=== PATIENT | female | born 2000 | race Caucasian/White ===

== ENCOUNTER 2021-06-14 11:33 | Inpatient (IN) | payer MEDICAID ==
[~2021-06-14 11:33] MED LIST: Bupivacaine 0.25% HCL 30 ML VIAL ONE; Bupivacaine PF 0.5% 30 ML VIAL ONE; Lidocaine 2% MPF 10 ML AMP (For Epidural Use) ONE
[2021-06-14] MEDS ORDERED: Lidocaine 1% (PF) 30 ML VIAL SC PRN (12:52)
[2021-06-14] MEDS ORDERED: hydrALAZINE 20 MG/ML VIAL SLOW IVP PRN ×2 (12:52→23:29)
[2021-06-14] MEDS ORDERED: Methylergonovine 0.2 MG/ML VIAL IM PRN (12:52)
[2021-06-14] MEDS ORDERED: Misoprostol 200 MCG TAB PR PRN ×2 (12:52→23:29)
[2021-06-14] MEDS ORDERED: Ibuprofen 800 MG TAB PO PRN (12:52)
[2021-06-14] MEDS ORDERED: Ondansetron PF 4 MG/2 ML Vial IVP PRN ×3 (12:52→23:29)
[2021-06-14] MEDS ORDERED: Promethazine HCl 25 MG/ML VIAL IM PRN ×3 (12:52→23:29)
[2021-06-14] MEDS ORDERED: Carboprost 250 MCG/ML AMP IM PRN (12:52)
[2021-06-14] MEDS ORDERED: NS w/ Oxytocin 30 units 500 ML IV SCH ×2 (13:00→23:29)
[2021-06-14] MEDS: Lactated Ringer's 1,000 ML IV SCH ×2 (13:15→14:25)
[2021-06-14 13:51] LABS: Hemoglobin 13.8 g/dL (12.0-15.5); Mean Corpuscular HGB CONC 34.1 g/dL (32.0-36.0); Mean Corpuscular Hemoglobin 32.3 pg (27.0-33.0); Mean Corpuscular Volume 94.8 fl (81.6-98.3); Mean Platelet Volume 11.4 fl (7.4-10.4); Platelet Count 155 10x3/uL (150-450); RBC Distribution Width 12.8 % (11.5-14.5); Red Blood Cell (RBC) Count 4.27 10x6/uL (3.90-5.03); White Blood Cell (WBC) Count 25.6 10x3/uL (3.5-10.5)
[2021-06-14 14:18] VITALS: BMI 31.3
[2021-06-14 14:21] LABS: Syphilis Antibody Nonreactive (Nonreactive)
[2021-06-14 14:22] LABS: Hep B Surf Ag Non-Reactive S/CO (NonReactive)
[2021-06-14 14:26] LABS: HBSAg Index 0.23 S/CO (0-0.99)
[2021-06-14] MEDS ORDERED: Dextrose 5%-Lactated Ringers 1,000 ML IV SCH (15:30)
[2021-06-14] MEDS ORDERED: Fentanyl 2 mcg/Bup 0.1% Cadd 100 ML ONE (15:55)
[2021-06-14] MEDS ORDERED: Azithromycin 500 MG VIAL ONE (17:49)
[2021-06-14] MEDS ORDERED: Famotidine/PF 20 mg/2ml Vial ONE ×2 (17:56→18:05)
[2021-06-14] MEDS ORDERED: Morphine PF 10 MG/10 ML VIAL ONE (18:04)
[2021-06-14] MEDS ORDERED: Methylergonovine 0.2 MG/ML VIAL ONE (18:05)
[2021-06-14] MEDS ORDERED: Oxytocin 10 UNITS/ML VIAL ONE (18:05)
[2021-06-14] MEDS ORDERED: Carboprost 250 MCG/ML AMP ONE (18:05)
[2021-06-14] MEDS ORDERED: Ondansetron PF 4 MG/2 ML Vial ONE (19:08)
[2021-06-14] MEDS ORDERED: Dexamethasone 4 mg/ml Vial ONE (19:08)
[2021-06-14] MEDS ORDERED: diphenhydrAMINE 50 MG/ML VIAL IVP PRN (20:08)
[2021-06-14] MEDS ORDERED: L&D-Morphine 4 MG/ML VIAL SLOW IVP PRN (20:08)
[2021-06-14] MEDS ORDERED: Naloxone HCl 0.4 mg/ml Vial IVP PRN ×2 (20:08)
[2021-06-14] MEDS ORDERED: Meperidine HCl/PF 25 MG/ML VIAL SLOW IVP PRN (20:08)
[2021-06-14] MEDS ORDERED: Fentanyl 100 MCG/2 ML VIAL SLOW IVP PRN (20:08)
[2021-06-14] MEDS ORDERED: Ondansetron HCl/PF 4 MG/2 ML Vial IVP PRN (20:08)
[2021-06-14] MEDS ORDERED: Hydrocerin (Eucerin) Cream 120 gm Jar TOP PRN (20:08)
[2021-06-14] MEDS ORDERED: Naloxone HCl 0.4 mg/ml Vial IV PRN (20:08)
[2021-06-14] MEDS ORDERED: Promethazine HCl 25 MG SUPP PR PRN (20:08)
[2021-06-14] MEDS ORDERED: Ketorolac Tromethamine 30 MG/ML VIAL IVP PRN (20:08)
[2021-06-14] MEDS ORDERED: Communication Order-Pharmacy FS SCH (20:15)
[2021-06-14] MEDS ORDERED: Ketorolac Tromethamine 30 MG/ML VIAL IVP SCH (20:15)
[2021-06-14] MEDS ORDERED: Fentanyl 100 MCG/2 ML VIAL ONE (21:41)
[2021-06-14] MEDS ORDERED: diphenhydrAMINE 25 MG CAP PO PRN (23:29)
[2021-06-14] MEDS ORDERED: Simethicone Chewable 80 MG TAB PO PRN (23:29)
[2021-06-14] MEDS ORDERED: Measles/Mumps/Rubella 10 MCG/0.5 ML VIAL SC ONE (23:29)
[2021-06-14] MEDS ORDERED: Varicella virus, LIVE 0.5 ML VIAL SC ONE (23:29)
[2021-06-14] MEDS ORDERED: Acetaminophen 325 MG TAB PO PRN (23:29)
[2021-06-14] MEDS ORDERED: Lanolin Ointment 7 GM TUBE TOP PRN (23:29)
[2021-06-14] MEDS ORDERED: Bisacodyl 10 MG SUPP PR PRN (23:29)
[2021-06-14] MEDS ORDERED: Boostrix 0.5 ML (Tdap) VIAL IM ONE (23:29)
[2021-06-15 07:44] LABS: Hemoglobin 9.2 g/dL (12.0-15.5); Mean Corpuscular HGB CONC 34.7 g/dL (32.0-36.0); Mean Corpuscular Hemoglobin 32.7 pg (27.0-33.0); Mean Corpuscular Volume 94.3 fl (81.6-98.3); Mean Platelet Volume 11.9 fl (7.4-10.4); Platelet Count 139 10x3/uL (150-450); RBC Distribution Width 12.7 % (11.5-14.5); Red Blood Cell (RBC) Count 2.81 10x6/uL (3.90-5.03); White Blood Cell (WBC) Count 21.2 10x3/uL (3.5-10.5)
[2021-06-15] MEDS: Docusate Calcium (SURFAK) 240 MG CAP PO SCH ×3 (08:11→20:22)
[2021-06-15] MEDS: Prenatal Vitamin 1 TAB PO SCH (08:11)
[2021-06-15] MEDS ORDERED: HYDROcodone/Acetaminophen 5/325 mg Tablet PO PRN (08:15)
[2021-06-15] MEDS ORDERED: Zolpidem Tartrate 5 MG TAB PO PRN (08:15)
[2021-06-15] MEDS: HYDROcodone/Acetaminophen 5/325 mg Tablet PO PRN ×2 (10:18→11:38)
[2021-06-15] MEDS: Ferrous Sulfate 325 MG TAB PO SCH (16:51)
[2021-06-15] MEDS: Ibuprofen 800 MG TAB PO SCH (20:22)
[2021-06-16] MEDS: Ibuprofen 800 MG TAB PO SCH ×3 (03:06→21:19)
[2021-06-16] MEDS: Prenatal Vitamin 1 TAB PO SCH (08:34)
[2021-06-16] MEDS: Ferrous Sulfate 325 MG TAB PO SCH ×2 (08:34→16:51)
[2021-06-16] MEDS: Docusate Calcium (SURFAK) 240 MG CAP PO SCH ×2 (08:34→21:19)
[2021-06-17] MEDS: Ibuprofen 800 MG TAB PO SCH (06:02)
[2021-06-17 07:52] VITALS: BP 107/54; TEMP 98.7
[2021-06-17] MEDS: Ferrous Sulfate 325 MG TAB PO SCH (10:25)
== END 2021-06-17 13:10 | disposition home or self-care (01) | DRG 788 ==
LOC: CSHLD/OP 11:33 → CSHLD 18:28 → UNDOADMIN 18:58 → CSHLD 18:58 → CSHPP 20:53 → CSHLD 20:53 → CSHPP 22:48 → CSHLD 22:48
PROVIDERS: ADMIT Obstetrics & Gynecology; ATTEND Obstetrics & Gynecology
PROC: 10907ZC Drainage of Amniotic Fluid, Therapeutic from Products of Conception, Via Natural or Artificial Opening (ICD-10-PCS; principal; 2021-06-14)
PROC: 10D00Z1 Extraction of Products of Conception, Low, Open Approach (ICD-10-PCS; 2021-06-14)
PROC: 30233S1 Transfusion of Nonautologous Globulin into Peripheral Vein, Percutaneous Approach (ICD-10-PCS; 2021-06-15)
DX: O76 Abnormality in fetal heart rate and rhythm complicating labor and delivery (principal); O99.334 Smoking (tobacco) complicating childbirth; O77.0 Labor and delivery complicated by meconium in amniotic fluid; Z3A.39 39 weeks gestation of pregnancy; Z37.0 Single live birth; F17.210 Nicotine dependence, cigarettes, uncomplicated
CPT/HCPCS: 36415; 51702; 85027; 85461; 86780; 86850; 86870; 86900; 86901; 87070; 87076; 87205; 87340; 90384; 96372; 99285; J0456; J0690; J1100; J1885; J2210; J2274; J2405; J2590; J3010; J3490; S0020; S0028

== ENCOUNTER 2021-06-30 15:37 | Emergency (ER) | payer MEDICAID, OTHER ==
[2021-06-30 16:26] LABS: #Basophils 0.1 10x3/uL (0.0-0.2); #Eosinphils 0.1 10x3/uL (0.0-0.5); #Monocytes 1.2 10x3/uL (0.0-1.1); %Basophils 0.4 % (0.0-2.0); %Eosinophils 0.7 % (0.0-6.0); %Lymphocytes 13.1 % (18.0-47.0); %Monocytes 7.5 % (0.0-10.0); %Neutrophils 77.8 % (40.0-75.0); Hemoglobin 10.4 g/dL (12.0-15.5); Mean Corpuscular HGB CONC 32.4 g/dL (32.0-36.0); Mean Corpuscular Volume 95.5 fl (81.6-98.3); Mean Platelet Volume 9.4 fl (7.4-10.4); Platelet Count 345 10x3/uL (150-450); RBC Distribution Width 12.7 % (11.5-14.5); Red Blood Cell (RBC) Count 3.36 10x6/uL (3.90-5.03); White Blood Cell (WBC) Count 15.4 10x3/uL (3.5-10.5)
[2021-06-30 16:39] LABS: ALT (SGPT) 13 U/L (8-55); AST (SGOT) 11 U/L (5-34); Albumin 3.5 g/dL (3.5-5.0); Alkaline Phosphatase 91 U/L (40-110); Anion Gap 11 mmol/L (10-20); BUN (Urea Nitrogen) 10 mg/dL (7.0-18.7); Bilirubin, Total 0.2 mg/dL (0.2-1.2); Calc. Creatinine Clearance 0 mL/min (70-130); Calcium 9.1 mg/dL (7.8-10.44); Carbon Dioxide 25 mmol/L (22-29); Chloride 108 mmol/L (98-107); Globulin 3.5 g/dL (2.4-3.5); Glucose 98 mg/dL (70-105); Potassium 4.3 mmol/L (3.5-5.1); Sodium 140 mmol/L (136-145)
== END 2021-06-30 17:37 | disposition left against medical advice (07) ==
LOC: CSHERS 15:37
DX: Z53.21 Procedure and treatment not carried out due to patient leaving prior to being seen by health care provider (principal)
CPT/HCPCS: 80053; 83605; 85025

== ENCOUNTER 2022-01-04 17:19 | Emergency (ER) | payer OTHER | END 2022-01-04 19:10 | disposition home or self-care (01) | LOC: CSHERS 17:19 | DX: O20.8 Other hemorrhage in early pregnancy (principal); O99.331 Smoking (tobacco) complicating pregnancy, first trimester; F17.200 Nicotine dependence, unspecified, uncomplicated; Z3A.01 Less than 8 weeks gestation of pregnancy | CPT/HCPCS: 76856 ==

== ENCOUNTER 2022-04-08 20:05 | Emergency (ER) | payer OTHER | END 2022-04-08 21:45 | disposition home or self-care (01) | LOC: CSHERS 20:05 | DX: O98.512 Other viral diseases complicating pregnancy, second trimester (principal); U07.1 COVID-19; O99.332 Smoking (tobacco) complicating pregnancy, second trimester; F17.200 Nicotine dependence, unspecified, uncomplicated | CPT/HCPCS: 87804; 99283; U0003; U0005 ==

== ENCOUNTER 2022-05-25 14:32 | Outpatient (CLI) | payer OTHER | END 2022-05-25 14:33 | disposition home or self-care (01) | LOC: CSHULT 14:32 | PROVIDERS: ATTEND Nurse Practitioner Women's Health | DX: O44.42 Low lying placenta NOS or without hemorrhage, second trimester (principal); Z3A.26 26 weeks gestation of pregnancy | CPT/HCPCS: 76805 ==

== ENCOUNTER 2022-08-26 05:24 | Inpatient (IN) | payer OTHER ==
[2022-08-26] MEDS ORDERED: Promethazine HCl 25 MG/ML VIAL IM PRN ×3 (06:03→11:03)
[2022-08-26] MEDS ORDERED: Famotidine/PF 20 mg/2ml Vial SLOW IVP PRN (06:03)
[2022-08-26] MEDS ORDERED: Ondansetron PF 4 MG/2 ML Vial IVP PRN ×3 (06:03→11:03)
[2022-08-26] MEDS ORDERED: Bicitra 30 ML UDCUP PO PRN (06:03)
[2022-08-26] MEDS ORDERED: Lactated Ringer's 1,000 ML IV SCH (06:03)
[2022-08-26] MEDS ORDERED: hydrALAZINE 20 MG/ML VIAL SLOW IVP PRN ×2 (06:03→11:03)
[2022-08-26 06:14] LABS: Hemoglobin 10.3 g/dL (12.0-15.5); Mean Corpuscular HGB CONC 33.9 g/dL (32.0-36.0); Mean Corpuscular Hemoglobin 28.4 pg (27.0-33.0); Mean Corpuscular Volume 83.7 fl (81.6-98.3); Mean Platelet Volume 11.8 fl (7.4-10.4); Platelet Count 165 10x3/uL (150-450); RBC Distribution Width 14.4 % (11.5-14.5); Red Blood Cell (RBC) Count 3.63 10x6/uL (3.90-5.03); White Blood Cell (WBC) Count 8.7 10x3/uL (3.5-10.5)
[2022-08-26 06:33] VITALS: BMI 31.6
[2022-08-26 06:57] LABS: HBSAg Index 0.18 S/CO (0-0.99); Hep B Surf Ag Non-Reactive S/CO (NonReactive)
[2022-08-26 06:59] LABS: Syphilis Antibody Nonreactive (Nonreactive)
[2022-08-26] MEDS ORDERED: Gentamicin Sulfate 80 MG in Premix Bag 1 BAG IVPB SCH (07:15)
[2022-08-26] MEDS ORDERED: Clindamycin/D5W 900 MG in Premix Bag 1 BAG IVPB SCH (07:15)
[2022-08-26] MEDS ORDERED: Morphine PF 10 MG/10 ML VIAL ONE (07:23)
[2022-08-26] MEDS ORDERED: Ketorolac Tromethamine 30 MG/ML VIAL ONE (07:24)
[2022-08-26] MEDS ORDERED: Dexamethasone 4 mg/ml Vial ONE ×2 (07:24→08:10)
[2022-08-26] MEDS ORDERED: Oxytocin 10 UNITS/ML VIAL ONE (07:24)
[2022-08-26] MEDS ORDERED: Ondansetron PF 4 MG/2 ML Vial ONE (07:24)
[2022-08-26] MEDS ORDERED: Phenylephrine 40 MG/NS 250 ML 250 ML ONE (07:24)
[2022-08-26] MEDS ORDERED: diphenhydrAMINE 50 MG/ML VIAL ONE (08:04)
[2022-08-26] MEDS ORDERED: Promethazine HCl 25 MG SUPP PR PRN (08:41)
[2022-08-26] MEDS ORDERED: Naloxone HCl 0.4 mg/ml Vial IV PRN (08:41)
[2022-08-26] MEDS ORDERED: Fentanyl 100 MCG/2 ML VIAL SLOW IVP PRN (08:41)
[2022-08-26] MEDS ORDERED: Ondansetron HCl/PF 4 MG/2 ML Vial IVP PRN (08:41)
[2022-08-26] MEDS ORDERED: diphenhydrAMINE 50 MG/ML VIAL IVP PRN (08:41)
[2022-08-26] MEDS ORDERED: Meperidine HCl/PF 25 MG/ML VIAL SLOW IVP PRN (08:41)
[2022-08-26] MEDS ORDERED: Moisturizing Cream (Eucerin) 113 GM JAR TOP PRN (08:41)
[2022-08-26] MEDS ORDERED: Ketorolac Tromethamine 30 MG/ML VIAL IVP PRN (08:41)
[2022-08-26] MEDS ORDERED: Naloxone HCl 0.4 mg/ml Vial IVP PRN ×2 (08:41)
[2022-08-26] MEDS ORDERED: Ketorolac Tromethamine 30 MG/ML VIAL IVP SCH (08:45)
[2022-08-26] MEDS ORDERED: Communication Order-Pharmacy FS SCH (08:45)
[2022-08-26] MEDS ORDERED: Boostrix 0.5 ML (Tdap) VIAL (>/=7 yrs of age) IM ONE (11:03)
[2022-08-26] MEDS ORDERED: Bisacodyl 10 MG SUPP PR PRN (11:03)
[2022-08-26] MEDS ORDERED: diphenhydrAMINE 25 MG CAP PO PRN (11:03)
[2022-08-26] MEDS ORDERED: Meperidine HCl/PF 25 MG/ML VIAL IM PRN (11:03)
[2022-08-26] MEDS ORDERED: Lanolin Ointment 7 GM TUBE TOP PRN (11:03)
[2022-08-26] MEDS ORDERED: Simethicone Chewable 80 MG TAB PO PRN (11:03)
[2022-08-26] MEDS: Ketorolac Tromethamine 30 MG/ML VIAL IVP SCH ×2 (14:00→20:09)
[2022-08-26] MEDS: Docusate 100 MG CAP PO SCH (20:09)
[2022-08-27] MEDS: Ketorolac Tromethamine 30 MG/ML VIAL IVP SCH ×2 (02:23→08:18)
[2022-08-27 04:14] LABS: Hemoglobin 9.2 g/dL (12.0-15.5); Mean Corpuscular HGB CONC 33.2 g/dL (32.0-36.0); Mean Corpuscular Hemoglobin 28.2 pg (27.0-33.0); Platelet Count 144 10x3/uL (150-450); RBC Distribution Width 13.9 % (11.5-14.5); Red Blood Cell (RBC) Count 3.26 10x6/uL (3.90-5.03); White Blood Cell (WBC) Count 11.7 10x3/uL (3.5-10.5)
[2022-08-27] MEDS: Ferrous Sulfate 325 MG TAB PO SCH ×3 (07:53→21:33)
[2022-08-27] MEDS: Prenatal Vitamin 1 TAB PO SCH (08:18)
[2022-08-27] MEDS: Docusate 100 MG CAP PO SCH ×2 (08:18→21:33)
[2022-08-27] MEDS: HYDROcodone/Acetaminophen 5/325 mg Tablet PO PRN ×2 (11:45→19:00)
[2022-08-27] MEDS: Ibuprofen 800 MG TAB PO SCH ×2 (13:44→21:33)
[2022-08-28] MEDS: HYDROcodone/Acetaminophen 5/325 mg Tablet PO PRN ×4 (00:28→21:08)
[2022-08-28] MEDS: Ibuprofen 800 MG TAB PO SCH ×3 (06:33→21:09)
[2022-08-28] MEDS: Docusate 100 MG CAP PO SCH ×2 (08:44→21:08)
[2022-08-28] MEDS: Prenatal Vitamin 1 TAB PO SCH (08:44)
[2022-08-28] MEDS: Ferrous Sulfate 325 MG TAB PO SCH ×2 (08:44→21:08)
[2022-08-29] MEDS: Ibuprofen 800 MG TAB PO SCH ×2 (06:26→14:04)
[2022-08-29 08:24] VITALS: BP 126/71; TEMP 98.6
[2022-08-29] MEDS: Prenatal Vitamin 1 TAB PO SCH (09:04)
[2022-08-29] MEDS: Docusate 100 MG CAP PO SCH (09:04)
[2022-08-29] MEDS: Ferrous Sulfate 325 MG TAB PO SCH (09:05)
[2022-08-29] MEDS: HYDROcodone/Acetaminophen 5/325 mg Tablet PO PRN (09:05)
== END 2022-08-29 16:00 | disposition home or self-care (01) | DRG 788 ==
LOC: CSHLD 05:24 → CSHPED 10:40
PROVIDERS: ADMIT Family Medicine; ATTEND Family Medicine
PROC: 10D00Z1 Extraction of Products of Conception, Low, Open Approach (ICD-10-PCS; principal; 2022-08-26)
PROC: 3E0334Z Introduction of Serum, Toxoid and Vaccine into Peripheral Vein, Percutaneous Approach (ICD-10-PCS; 2022-08-26)
DX: O34.211 Maternal care for low transverse scar from previous cesarean delivery (principal); O26.893 Other specified pregnancy related conditions, third trimester; Z67.41 Type O blood, Rh negative; Z3A.39 39 weeks gestation of pregnancy; Z37.0 Single live birth; Z79.899 Other long term (current) drug therapy; Z88.0 Allergy status to penicillin
CPT/HCPCS: 36415; 51702; 85027; 85461; 86780; 86850; 86900; 86901; 87340; 90384; 96372; J1100; J1200; J1885; J2274; J2405; J2590; S0028